=== PATIENT | female | born 1965 | race Caucasian/White ===

== ENCOUNTER 2019-03-24 17:06 | Emergency (ER) | payer MEDICAID ==
[~2019-03-24] VITALS: Ht 172.7 cm; Wt 90.0 kg
[~2019-03-24 17:06] MED LIST: NO HOME MEDS
[2019-03-24 17:31] VITALS: BP 156/103
== END 2019-03-24 17:47 | disposition home or self-care (01) ==
LOC: ER 17:07
DX: S66.811A Strain of other specified muscles, fascia and tendons at wrist and hand level, right hand, initial encounter (principal); S66.812A Strain of other specified muscles, fascia and tendons at wrist and hand level, left hand, initial encounter; F32.9 Major depressive disorder, single episode, unspecified; Z88.6 Allergy status to analgesic agent; Z79.899 Other long term (current) drug therapy; Z98.84 Bariatric surgery status; W18.09XA Striking against other object with subsequent fall, initial encounter; Y93.89 Activity, other specified; Y92.89 Other specified places as the place of occurrence of the external cause; Y99.8 Other external cause status
CPT/HCPCS: 73110; 99283

== ENCOUNTER 2023-12-28 11:18 | Outpatient (CLI) | payer MEDICAID | END 2023-12-28 23:59 | disposition home or self-care (01) | LOC: RAD 11:18 | PROVIDERS: ATTEND Podiatrist Foot & Ankle Surgery | DX: M25.472 Effusion, left ankle (principal); M21.6X2 Other acquired deformities of left foot; M21.42 Flat foot [pes planus] (acquired), left foot | CPT/HCPCS: 73700 ==